=== PATIENT | male | born 1990 | race Caucasian/White ===

== ENCOUNTER 2020-10-02 15:10 | Emergency (ER) | payer OTHER ==
[2020-10-02] MEDS ORDERED: Ketorolac 30 MG/ML SDV IM STA (15:34)
[2020-10-02] MEDS ORDERED: Diazepam 5 MG Tab PO ONE (15:34)
--- NOTE | 2020-10-02 15:42 | EDM.PDOC ---
ED HPI GENERAL MEDICAL PROBLEM - General Chief Complaint: Back Pain or Injury Stated Complaint: BACK PAIN Time Seen by Provider: 10/02/20 15:16 - History of Present Illness INITIAL COMMENTS - FREE TEXT/NARRATIVE: 30-year-old male history of hep C no other active medical problems presenting with acute low back pain. 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 He felt well at that time. He then went back to his [employer] station and he turned and had a sharp sudden severe pain in his lower back. Any movement or bending worsens this pain. He finished out his shift and went home. He woke up this morning with worse pain. He has no radiation into the legs he has no urinary or bowel incontinence he has no abdominal pain he has no chest pain or shortness of breath. Symptoms are constant and severe worsened with any movement and there are without alleviating factors or other associated symptoms. No prior history of back injury or pain. bilateral lower back Pain Score (Numeric/FACES): 8 - Related Data Allergies Allergy/AdvReac Type Severity Reaction Status Date / Time Penicillins Allergy Other Verified 10/02/20 15:29 Home Meds: Home Meds Ibuprofen 600 mg PO TID 5 Days #15 tablet 10/02/20 [Rx] diazePAM [Valium.] 5 mg PO TID PRN 4 Days #12 tab 10/02/20 [Rx] Past Medical History - Past Health History Medical/Surgical History: Denies Medical/Surgical History HEENT History: Reports: None Cardiovascular History: Reports: None Respiratory History: Reports: None Gastrointestinal History: Reports: None Genitourinary History: Reports: None Musculoskeletal History: Reports: None Neurological History: Reports: None Psychiatric History: Reports: None Endocrine/Metabolic History: Reports: None Hematologic History: Reports: None Immunologic History: Reports: None Oncologic (Cancer) History: Reports: None Dermatologic History: Reports: None - Infectious Disease History Infectious Disease History: Reports: None - Past Surgical History Head Surgeries/Procedures: Reports: None Social & Family History - Family History Family Medical History: No Pertinent Family History - Tobacco Use Tobacco Use Status *Q: Current Every Day Tobacco User Years of Tobacco use: 15 Packs/Tins Daily: 1 - Caffeine Use Caffeine Use: Reports: None - Recreational Drug Use Recreational Drug Use: Yes Drug Use in Last 12 Months: Yes Recreational Drug Type: Reports: Marijuana/Hashish ED ROS GENERAL - Review of Systems Review Of Systems: See Below Free Text/Narrative/Comment: Neck: No neck stiffness. Respiratory: No shortness of breath. Cardiac: No chest pain. Gastrointestinal: No nausea, vomiting or abdominal pain. Urinary: No incontinence Musculoskeletal: Per HPI ED EXAM, GENERAL - Physical Exam Exam: See Below Free Text/Narrative:: General Appearance: No acute distress, appears comfortable Skin: No rash HEENT: Normocephalic/atraumatic, sclera anicteric, mucous membranes moist Neck: Normal range of motion Chest and Lungs: Bilateral breath sounds, clear to auscultation Cardiovascular: Regular rate and rhythm, no murmur Back: Tenderness in the bilateral paraspinals from L1-L4 with palpable spasm no midline step-off or deformity is noted Musculoskeletal: No edema or tenderness Neurologic: Awake, alert, no obvious deficits, moving all extremities, strength and sensation intact in the bilateral lower extremities Psychiatric: Appropriate, cooperative Course - Vital Signs Last Recorded V/S: Last Vital Signs Temp 97.4 F 10/02/20 15:25 Pulse 114 H 10/02/20 15:25 Resp 18 10/02/20 15:25 BP 144/110 H 10/02/20 15:25 Pulse Ox 98 10/02/20 15:25 - Orders/Labs/Meds Meds: Medications Discontinued Medications Generic Name Dose Route Start Last Admin Trade Name Freq PRN Reason Stop Dose Admin Diazepam 5 mg 10/02/20 15:34 10/02/20 15:42 Diazepam 5 Mg Tab PO 10/02/20 15:35 5 mg ONETIME ONE Administration Ketorolac Tromethamine 30 mg 10/02/20 15:34 10/02/20 15:41 Ketorolac 30 Mg/Ml Sdv IM 10/02/20 15:35 30 mg NOW STA Administration Departure - Departure Time of Disposition: 16:15 Disposition: Home, Self-Care 01 Condition: Good Clinical Impression: Acute low back pain - Discharge Information *PRESCRIPTION DRUG MONITORING PROGRAM REVIEWED*: Yes *COPY OF PRESCRIPTION DRUG MONITORING REPORT IN PATIENT SOCRATES: No Prescriptions: Ibuprofen 600 mg PO TID 5 Days #15 tablet diazePAM [Valium.] 5 mg PO TID PRN 4 Days #12 tab PRN Reason: muscle spasms Instructions: Acute Back Pain, Adult Forms: ED Department Discharge Additional Instructions: Please take the ibuprofen 3 times daily with food. You can take the Valium for muscle relaxation as you need to but if you do this he will not be able to drive or go to work. I would plan to take it early at night to help with morning muscle spasms. Your symptoms should improve over the next few days. Do not push through pain. However, it is important you do not simply lay around at home as inactivity can make your recovery take longer. Please follow-up with the occupational health clinic. [facility] [place] [id number] The following information is given to patients seen in the emergency department who are being discharged to home. This information is to outline your options for follow-up care. We provide all patients seen in our emergency department with a follow-up referral. The need for follow-up, as well as the timing and circumstances, are variable depending upon the specifics of your emergency department visit. If you don't have a primary care physician on staff, we will provide you with a referral. We always advise you to contact your personal physician following an emergency department visit to inform them of the circumstance of the visit and for follow-up with them and/or the need for any referrals to a consulting specialist. The emergency department will also refer you to a specialist when appropriate. This referral assures that you have the opportunity for follow-up care with a specialist. All of these measure are taken in an effort to provide you with optimal care, which includes your follow-up. Under all circumstances we always encourage you to contact your private physician who remains a resource for coordinating your care. When calling for follow-up care, please make the office aware that this follow-up is from your r ecent emergency room visit. If for any reason you are refused follow-up, please contact the [facility] Emergency Department at and asked to speak to the emergency department charge nurse. Sepsis Event Note (ED) - Evaluation Sepsis Screening Result: No Definite Risk - Focused Exam Vital Signs: Vital Signs Temp Pulse Resp BP Pulse Ox 10/02/20 15:25 97.4 F 114 H 18 144/110 H 98 - Assessment/Plan Assessment:: 30-year-old male presenting with likely musculoskeletal lower back pain nothing suggest cord compression or cauda equina. There is no radicular component to this. Nothing suggests spinal osteomyelitis or epidural abscess no findings suggest pyelonephritis. No anterior abdominal symptoms suggest diverticulitis appendicitis etc. Patient is not at risk for AAA or aortic issues. Valium and Toradol ordered for symptoms. Patient will be given a note for work tonight and will follow up with the occupational health clinic. 1615: Pt's sx have improved some, though not resolved. He is now ambulatory with a steady gait and able to move around. Pt discharged with instructions for f/u.
== END 2020-10-02 16:23 | disposition home or self-care (01) ==
LOC: MW.ED 15:10
DX: M54.5 Low back pain (principal); Z72.0 Tobacco use; Z88.0 Allergy status to penicillin
CPT/HCPCS: 96372; 99283; A9270; J1885

== ENCOUNTER 2021-08-01 18:52 | Emergency (ER) | payer SELFPAY ==
[2021-08-01] MEDS ORDERED: predniSONE 20 MG Tab PO ONE (19:57)
[2021-08-01] MEDS ORDERED: Diazepam 2 MG Tab PO PRN (19:57)
== END 2021-08-01 20:22 | disposition home or self-care (01) ==
LOC: MW.ED 18:52
DX: S39.012A Strain of muscle, fascia and tendon of lower back, initial encounter (principal); F17.210 Nicotine dependence, cigarettes, uncomplicated; Z88.0 Allergy status to penicillin; X50.9XXA Other and unspecified overexertion or strenuous movements or postures, initial encounter
CPT/HCPCS: 99283; A9270

== ENCOUNTER 2022-01-12 17:33 | Emergency (ER) | payer SELFPAY ==
[2022-01-12] MEDS ORDERED: Albuterol/Ipratropium 3.0-0.5 MG/3 ML Neb Soln ONE (17:38)
[2022-01-12] MEDS ORDERED: Albuterol/Ipratropium 3.0-0.5 MG/3 ML Neb Soln NEB STA (17:45)
[2022-01-12 18:29] LABS: CARBON DIOXIDE,CO2 28.1 mmol/L (21.0-32.0); POTASSIUM,K 4.3 mmol/L (3.5-5.1)
[2022-01-12 18:30] LABS: CORONAVIRUS COVID-19 NAA NEGATIVE (NEGATIVE); INFLUENZA A NAA NEGATIVE (NEGATIVE); INFLUENZA B NAA NEGATIVE (NEGATIVE)
[2022-01-12] MEDS ORDERED: Albuterol/Ipratropium 3.0-0.5 MG/3 ML Neb Soln NEB ONE (18:37)
[2022-01-12] MEDS ORDERED: methylPREDNISolone Sodium Succinate 40 MG/1 ML SDV IVPUSH ONE (18:42)
[2022-01-12] MEDS ORDERED: Azithromycin 250 MG Tab PO ONE (20:43)
== END 2022-01-12 21:07 | disposition home or self-care (01) ==
LOC: MW.ED 17:33
DX: J44.1 Chronic obstructive pulmonary disease with (acute) exacerbation (principal); G47.33 Obstructive sleep apnea (adult) (pediatric); E66.9 Obesity, unspecified; Z88.0 Allergy status to penicillin; Z20.822 Contact with and (suspected) exposure to COVID-19; Z68.41 Body mass index [BMI] 40.0-44.9, adult
CPT/HCPCS: 0240U; 36415; 71045; 80053; 83735; 84484; 85025; 85379; 93005; 96374; 99285; A9270; J2920; J7620-GY

== ENCOUNTER 2022-02-25 11:25 | Emergency (ER) | payer SELFPAY ==
[2022-02-25 12:24] LABS: CORONAVIRUS COVID-19 NAA NEGATIVE (NEGATIVE); INFLUENZA A NAA NEGATIVE (NEGATIVE); INFLUENZA B NAA NEGATIVE (NEGATIVE)
== END 2022-02-25 12:44 | disposition home or self-care (01) ==
LOC: MW.ED 11:25
DX: J98.8 Other specified respiratory disorders (principal); Z72.0 Tobacco use; Z88.0 Allergy status to penicillin; Z20.822 Contact with and (suspected) exposure to COVID-19
CPT/HCPCS: 0240U; 99283

== ENCOUNTER 2022-03-12 15:43 | Emergency (ER) | payer SELFPAY | END 2022-03-12 18:20 | disposition home or self-care (01) | LOC: MW.ED 15:43 | DX: S93.401A Sprain of unspecified ligament of right ankle, initial encounter (principal); Z88.0 Allergy status to penicillin; W00.0XXA Fall on same level due to ice and snow, initial encounter | CPT/HCPCS: 73610-26-RT; 73610-RT; 73630-26-RT; 73630-RT; 99283 ==

== ENCOUNTER 2022-03-18 12:47 | Emergency (ER) | payer SELFPAY ==
[2022-03-18 15:01] LABS: CARBON DIOXIDE,CO2 29.8 mmol/L (21.0-32.0); POTASSIUM,K 3.7 mmol/L (3.5-5.1)
== END 2022-03-18 15:24 | disposition home or self-care (01) ==
LOC: MW.ED 12:47
DX: M54.2 Cervicalgia (principal); Z88.0 Allergy status to penicillin; Z86.16 Personal history of COVID-19; W01.198A Fall on same level from slipping, tripping and stumbling with subsequent striking against other object, initial encounter
CPT/HCPCS: 36415; 80053; 84484; 85025; 93005; 99283

== ENCOUNTER 2022-12-08 11:33 | Emergency (ER) | payer MEDICAID ==
[2022-12-08] MEDS ORDERED: Acetaminophen 325 MG Tab PO ONE (12:01)
[2022-12-08] MEDS ORDERED: Ketorolac 30 MG/ML SDV IM ONE (12:01)
[2022-12-08 12:20] LABS: BASOPHILS PERCENT AUTO 0.3 % (0.0-1.5); EOSINOPHILS ABSOLUTE AUTO 0.3 K/uL (0.0-0.7); EOSINOPHILS PERCENT AUTO 3.4 % (0.0-7.0); HEMATOCRIT 47.6 % (38.0-50.0); HEMOGLOBIN 16.3 g/dL (13.0-17.0); LYMPHOCYTES ABSOLUTE AUTO 2.1 K/uL (0.6-2.4); LYMPHOCYTES PERCENT AUTO 23.1 % (16.0-40.0); MEAN CORPUSCULAR HEMOGLOBIN 30.1 pg (27.0-32.0); MEAN CORPUSCULAR HGB CONC 34.2 g/dL (31.0-37.0); MEAN CORPUSCULAR VOLUME 87.8 fL (80.0-98.0); MONOCYTES ABSOLUTE AUTO 0.7 K/uL (0.0-0.8); MONOCYTES PERCENT AUTO 8.1 % (0.0-15.0); NEUTROPHILS ABSOLUTE AUTO 5.8 K/uL (1.4-5.7); NEUTROPHILS PERCENT AUTO 65.1 % (48.0-80.0); NRBC ABSOLUTE 0 K/uL; PLATELET COUNT,PLT 278 K/uL (150-400); RED BLOOD CELL COUNT 5.42 M/uL (4.50-5.90); WHITE BLOOD CELL COUNT,WBC 8.91 K/uL (4.0-11.0)
[2022-12-08 12:40] LABS: CALCIUM 9.2 mg/dL (8.5-10.1); CARBON DIOXIDE,CO2 24.2 mmol/L (21.0-32.0); CREATININE 1.1 mg/dL (0.8-1.3); EST CRCL DRUG DOSING (CG) 94.62 mL/min; POTASSIUM,K 4.2 mmol/L (3.5-5.1)
== END 2022-12-08 14:26 | disposition home or self-care (01) ==
LOC: MW.ED 11:33
DX: M79.642 Pain in left hand (principal); Z86.16 Personal history of COVID-19; Z88.0 Allergy status to penicillin
CPT/HCPCS: 36415; 73100; 73120; 80048; 85025; 96372; 99283; A9270; J1885

== ENCOUNTER 2022-12-19 11:19 | Emergency (ER) | payer MEDICAID ==
[2022-12-19] MEDS ORDERED: Ketorolac 30 MG/ML SDV IM STA (12:10)
== END 2022-12-19 13:04 | disposition home or self-care (01) ==
LOC: MW.ED 11:19
DX: M79.642 Pain in left hand (principal); M25.532 Pain in left wrist; Z86.16 Personal history of COVID-19; Z88.0 Allergy status to penicillin
CPT/HCPCS: 73030; 96372; 99283; J1885

== ENCOUNTER 2023-01-26 08:00 | Emergency (ER) | payer MEDICAID | END 2023-01-26 09:12 | disposition home or self-care (01) | LOC: MW.ED 08:00 | DX: M25.532 Pain in left wrist (principal); F17.210 Nicotine dependence, cigarettes, uncomplicated; Z86.16 Personal history of COVID-19; Z88.0 Allergy status to penicillin | CPT/HCPCS: 99283 ==